=== PATIENT | female | born 1965 | race African-American/Black ===

== ENCOUNTER 2018-11-02 09:40 | Emergency (ER) | payer MEDICAID ==
[~2018-11-02] VITALS: Ht 165.1 cm; Wt 81.6 kg
[2018-11-02 10:17] VITALS: BP 129/49
[2018-11-02] MEDS ORDERED: KETOROLAC TROMETH 60MG/2ML VIAL IM ONE (10:30)
== END 2018-11-02 11:58 | disposition home or self-care (01) ==
LOC: ER 09:40
DX: M79.605 Pain in left leg (principal); M25.552 Pain in left hip; M79.652 Pain in left thigh; M25.562 Pain in left knee; I10 Essential (primary) hypertension; Z90.89 Acquired absence of other organs; Z88.6 Allergy status to analgesic agent
CPT/HCPCS: 73502; 73552; 96372; 99283; J1885

== ENCOUNTER 2022-06-05 11:26 | Emergency (ER) | payer MEDICAID ==
[~2022-06-05] VITALS: Ht 165.1 cm; Wt 100.0 kg
[2022-06-05 11:55] VITALS: BP 137/80
[2022-06-05] MEDS ORDERED: ACETAMINOPHEN 500 MG TAB PO ONE (12:15)
[2022-06-05] MEDS ORDERED: IBUP800T27 PO (13:00)
[2022-06-05] MEDS ORDERED: METH750T22 PO (13:00)
== END 2022-06-05 13:07 | disposition home or self-care (01) ==
LOC: ER 11:26
DX: S23.41XA Sprain of ribs, initial encounter (principal); S20.02XA Contusion of left breast, initial encounter; I10 Essential (primary) hypertension; X50.0XXA Overexertion from strenuous movement or load, initial encounter; Y93.89 Activity, other specified; Y92.89 Other specified places as the place of occurrence of the external cause; Y99.8 Other external cause status
CPT/HCPCS: 71101